=== PATIENT | male | born 1975 | race Caucasian/White ===

== ENCOUNTER 2017-09-08 20:30 | Outpatient (CLI) | payer BC ==
[~2017-09-08 20:30] MED LIST: AZIT-21 PO; CEPH500C PO; INSU100I16 SQ; INSU100I23 SQ; OXYC-12 PO
== END 2017-09-09 07:05 | disposition home or self-care (01) ==
LOC: SLEEP 20:30
PROVIDERS: ATTEND Family Medicine
DX: G47.33 Obstructive sleep apnea (adult) (pediatric) (principal)
CPT/HCPCS: 95811

== ENCOUNTER → 2019-08-14 | Outpatient (CLI) | payer BC ==
--- NOTE | 2019-08-14 13:06 | Diagnostic Imaging Report ---
INDICATION: Left breast nodule. COMPARISON: No prior mammograms are available for comparison. TECHNIQUE: Unilateral left 2D and 3D diagnostic mammography was performed with CAD. FINDINGS: No significant fibroglandular tissue is seen. A BB marker was placed at the area of palpable abnormality in the upper outer left breast. No underlying abnormality is seen. No suspicious calcifications are identified. The left axilla is unremarkable. IMPRESSION: No suspicious mammographic abnormalities are identified. Even so, directed sonographic interrogation of the area of palpable abnormality in the left breast is recommended and will be performed today. ACR BI-RADS Category 0: Incomplete. (Needs additional imaging evaluation). Result letter will be mailed to the patient. Note: At least 10% of breast cancer is not imaged by mammography. Dictated by: Dictated on workstation # [id number]
--- NOTE | 2019-08-14 14:36 | Diagnostic Imaging Report ---
INDICATION: Palpable lumps in the left breast. COMPARISON: Correlation is made with the diagnostic mammogram from earlier this same day. FINDINGS: Sonographic interrogation of the areas of nodules in the upper, outer, and lower-outer left breast was performed. No sonographic abnormality is seen. No solid or cystic mass is detected. IMPRESSION: No sonographic abnormality is detected. Continued clinical and self breast exams are recommended to confirm stability of the palpable abnormalities. ACR BI-RADS Category 1: Negative. Dictated by: Dictated on workstation # [id number]
== END ==
LOC: RAD 12:31
PROVIDERS: ATTEND Nurse Practitioner Family
DX: N63.42 Unspecified lump in left breast, subareolar (principal); G47.33 Obstructive sleep apnea (adult) (pediatric); E11.8 Type 2 diabetes mellitus with unspecified complications
CPT/HCPCS: 76642

== ENCOUNTER → 2019-08-29 | Outpatient (CLI) | payer BC ==
--- NOTE | 2019-08-29 17:02 | Diagnostic Imaging Report ---
INDICATION: Hip pain. COMPARISON: None available. TECHNIQUE: Five radiographs of the pelvis and bilateral hips dated August 29, 2019. FINDINGS: Degenerative changes noted at the lumbosacral junction. The sacroiliac joints are intact. No acute fracture or dislocation. 2.4 cm sclerotic lesion is noted within the medial aspect of the left acetabulum. An additional 1.1 cm sclerotic focus is noted within the left acetabular roof. Mild osteophyte formation associated with the bilateral hips, right greater than left. Minimal bilateral joint space narrowing involving the hips. The pubic symphysis is intact. IMPRESSION: Two sclerotic lesions about the left acetabulum. These are of uncertain etiology. Although these could relate to bone islands, osseous metastatic disease or other sclerotic lesions not excluded. Comparison to prior imaging is recommended. If there is clinical concern that this could relate to osseous metastatic disease, then a nuclear medicine whole body bone scan would be recommended. Mild scattered degenerative changes, greatest within the right hip and the lumbosacral junction. Dictated by: Dictated on workstation # [id number]
== END ==
LOC: RAD 11:43
PROVIDERS: ATTEND Internal Medicine
DX: M16.0 Bilateral primary osteoarthritis of hip (principal); M47.817 Spondylosis without myelopathy or radiculopathy, lumbosacral region; M89.9 Disorder of bone, unspecified
CPT/HCPCS: 73523

== ENCOUNTER → 2019-09-30 | Outpatient (CLI) | payer BC ==
--- NOTE | 2019-09-30 15:55 | Diagnostic Imaging Report ---
EXAMINATION: Nuclear medicine whole body bone scan. INDICATION: Bilateral anterior hip pain. TECHNIQUE: This study was performed following administration of 25.5 mCi of 99m technetium MDP. Anterior and posterior whole body images were obtained as well as anterior, posterior, and both lateral spot films of the pelvis. FINDINGS: There are no prior nuclear medicine studies available for comparison. The plain film examination of the pelvis performed on 08/29/2019 failed to show any sign of an acute bony abnormality. There were two sclerotic lesions in the left acetabulum. There was also moderate degenerative disease of both hip joints. On this exam, there is no increased uptake in the region of the left acetabulum in the area of the sclerotic foci to suggest that those areas of sclerosis are neoplastic in nature. There is slightly increased activity along the lateral aspect of the left hip. I suspect this is more likely due to degenerative disease than to an acute abnormality. There is no other abnormal uptake to suggest an acute abnormality or neoplastic disease. Both kidneys do show excretion of the contrast. IMPRESSION: 1. There is no evidence for an acute bony abnormality. There is no abnormal enhancement about the left acetabulum to suggest the presence of neoplastic disease either. 2. The slightly increased activity about the left acetabulum is most likely degenerative in nature. 3. If clinical concern regarding an underlying abnormality of the hips persists and further imaging is desired, then MRI would be recommended. Dictated by: Dictated on workstation # [id number]
== END ==
LOC: CARD 10:50
PROVIDERS: ATTEND Internal Medicine
DX: M25.551 Pain in right hip (principal); M25.552 Pain in left hip
CPT/HCPCS: 78306

== ENCOUNTER → 2020-01-27 | Outpatient (CLI) | payer BC ==
--- NOTE | 2020-01-27 16:03 | Diagnostic Imaging Report ---
Indication: Difficulty swallowing and breathing. Time of exam: 3:55 PM Comparison is made with prior chest from 03/28/2011. The heart size is normal. The pulmonary vascularity is unremarkable. The lungs are clear. No infiltrate, effusion or pneumothorax is detected. Impression: No acute cardiopulmonary process is detected. Dictated by: Dictated on workstation # [id number]
== END ==
LOC: RAD 15:38
PROVIDERS: ATTEND Internal Medicine
DX: R13.19 Other dysphagia (principal); R06.02 Shortness of breath
CPT/HCPCS: 71046

== ENCOUNTER 2020-01-28 00:54 | Emergency (ER) | payer BC ==
[~2020-01-28] VITALS: Ht 193 cm; Wt 129.0 kg
[2020-01-28] MEDS ORDERED: LIDOCAINE 2% VISCOUS 15 ML UDC PO ONE (02:00)
[2020-01-28] MEDS ORDERED: ANTACID SUSP 30 ML UDC (MYLANTA) PO ONE (02:00)
[2020-01-28 02:05] LABS: BASOPHILS % (AUTO) 0 % (0-10); EOSINOPHILS # (AUTO) 0.2 10^3/uL (0.0-0.3); EOSINOPHILS % (AUTO) 2 % (0-10); HEMATOCRIT 48 % (40-54); HEMOGLOBIN 16.1 G/DL (13.3-17.7); LYMPHOCYTES # (AUTO) 3.1 X 10^3 (1.0-4.0); LYMPHOCYTES % (AUTO) 35 % (12-44); MEAN CORPUSCULAR HEMOGLOBIN 26 PG (25-34); MEAN CORPUSCULAR HGB CONC 34 G/DL (32-36); MEAN CORPUSCULAR VOLUME 78 FL (80-99); MEAN PLATELET VOLUME 10.6 FL (7.4-10.4); MONOCYTES # (AUTO) 0.8 X 10^3 (0.0-1.0); MONOCYTES % (AUTO) 9 % (0-12); NEUTROPHILS # (AUTO) 4.8 X 10^3 (1.8-7.8); NEUTROPHILS % (AUTO) 54 % (42-75); PLATELET COUNT 256 10^3/uL (130-400); RED CELL DISTRIBUTION WIDTH 14.7 % (10.0-14.5); WHITE BLOOD COUNT 8.8 10^3/uL (4.3-11.0)
[2020-01-28 02:12] LABS: ALBUMIN 4.9 GM/DL (3.2-4.5); CHLORIDE 103 MMOL/L (98-107); POTASSIUM 3.6 MMOL/L (3.6-5.0); SODIUM 140 MMOL/L (135-145)
[2020-01-28 02:13] LABS: CALCIUM 10.2 MG/DL (8.5-10.1)
[2020-01-28 02:14] LABS: GLUCOSE 89 MG/DL (70-105); TOTAL PROTEIN 8.4 GM/DL (6.4-8.2)
[2020-01-28 02:15] LABS: CARBON DIOXIDE 22 MMOL/L (21-32)
[2020-01-28 02:16] LABS: BILIRUBIN,TOTAL 0.5 MG/DL (0.1-1.0)
[2020-01-28 02:18] LABS: ALKALINE PHOSPHATASE 64 U/L (40-136); CREATININE SERUM 0.89 MG/DL (0.60-1.30); GFR ESTIMATED > 60
[2020-01-28 02:19] LABS: BUN/CREATININE RATIO 18
[2020-01-28 02:21] LABS: ALANINE AMINOTRANSFERASE 36 U/L (0-55)
--- NOTE | 2020-01-28 02:24 | ED General ---
General Chief Complaint: Respiratory Problems Stated Complaint: SOB Source of Information: Patient Exam Limitations: No Limitations (INESSA MORRIS,) History of Present Illness Date Seen by Provider: Jan 28, 2020 Time Seen by Provider: 02:08 Initial Comments Mr. Martinez is here regarding difficulty swallowing. This has been occurring for 10 days, but tonight, the symptoms were unbearable. His difficulty swallowing leads to shortness of breath. Laying on his back worsens the pain to where he cannot swallow his own saliva. He uses a CPAP at night to help with breathing, but he states that he cannot feel the air pressure anymore due to symptoms. Last week, he was diagnosed with acid reflux by his PCP and was taking OTC Prilosec with Pepcid added a few days later. He does note that the pain lessens for a few hours per day with these medications. However, tonight the symptoms were worsening again and he had many "failed swallowing attempts". He does notice that when he flexes his jaw or moves his head around, he can dislodge food and swallow easier. He has to chew his food excessively in order to contemplate swallowing. Standing improves his pain while lying down worsens it. He does not notice that the symptoms worsen with specific food types, but does notice he experiences symptoms about 2 hours after consumption of food. He describes this feeling as "something there that needs to be swallowed but can't, like a clog". He has tried Tums, Mylanta, and Tatianna Tifton for symptoms without relief. He denies nausea, vomiting, chest pain, headache, or upper respiratory symptoms. No known exposure to COVID-19. He does state that he has been short of breath during this time and each time he breathes, regardless of other symptoms, he does not think he can get a full breath. Also, he notes that he can't breathe air through his nose, but is unsure if he is congested. Timing/Duration: 1 Week Severity: Moderate Modifying Factors: worse with Eating (INESSA MORRIS,) Initial Comments Additionally, patient reports having snoring recently. He does have obstructive sleep apnea and does use CPAP. He did have that checked and states that it is working appropriately. States that he feels like something is blocking swallowing. He has not had this sensation before. Denies fever or chills. Further investigation into travel history and exposure revealed no concerning events. He did meet a commercial real estate underwriter a little over 2 weeks ago but that has been his last exposure to anyone outside the home. He works from home. He has gone to the store over the last 2 weeks but wears a mask and washes his hands. Otherwise no significant contact. Timing/Duration: 1 Week (2 weeks) Severity: Moderate Modifying Factors: improves with Rest Associated Systoms: No Chest Pain, No Cough, No Fever/Chills, No Malaise, No Nausea/Vomiting; Shortness of Air (feeling of shortness of air due to difficulty with swallowing); No Weakness (JEN RODRÍGUEZ MD) Allergies and Home Medications Allergies Coded Allergies: No Known Drug Allergies (Unverified , 01/29/11) Home Medications Cephalexin Monohydrate 500 Mg Capsule, 1 EACH PO TID, (Reported) TAKE ONE BY MOUTH THREE TIMES A DAY. USE ALL OF THIS MED (ANTIBIOITIC) PRESCRIBED. Insulin Detemir 100 Unit/1 Ml Insuln.pen, 24 UNIT SQ HS, (Reported) Insulin Human Lispro 300 U/3 Ml Insuln.pen, 15 UNITS SQ TIDAC, (Reported) Oxycodone Hcl/Acetaminophen 1 Each Tablet, 1-2 EACH PO Q4-6HRS PRN, (Reported) MAY TAKE 1 OR 2 TABS BY MOUTH EVERY 4-6 HRS NEEDED FOR PAIN. DO NOT EXCEED 3000 MG TYLENOL (ACETAMINOPHEN)IN 24HRS Patient Home Medication List Home Medication List Reviewed: Yes (INESSA MORRIS,) Home Medication List Reviewed: Yes (JEN RODRÍGUEZ MD) Review of Systems Review of Systems Constitutional: no symptoms reported EENTM: see HPI Respiratory: see HPI Cardiovascular: no symptoms reported Gastrointestinal: see HPI Genitourinary: no symptoms reported Musculoskeletal: no symptoms reported Skin: no symptoms reported Psychiatric/Neurological: No Symptoms Reported Hematologic/Lymphatic: No Symptoms Reported Immunological/Allergic: no symptoms reported (INESSA MORRIS,) Constitutional: No chills, No fever, No weakness EENTM: see HPI, nose congestion; No throat pain Respiratory: see HPI; No cough, No wheezing Cardiovascular: No chest pain, No edema Gastrointestinal: see HPI; No abdominal pain, No nausea, No vomiting Genitourinary: no symptoms reported Musculoskeletal: no symptoms reported (JEN RODRÍGUEZ MD) All Other Systems Reviewed Negative Unless Noted: Yes (JEN RODRÍGUEZ MD) Past Wypszhl-Kahtoj-Rvepff Hx Past Med/Social Hx: Reviewed Nursing Past Med/Soc Hx (JEN RODRÍGUEZ MD) Patient Social History Recent Foreign Travel: No Contact w/Someone Who Travel: No Physical Abuse: No Sexual Abuse: No Mistreated: No Fear: No (INESSA MORRIS) Alcohol Use: Denies Use Recreational Drug Use: No Smoking Status: Never a Smoker (JEN RODRÍGUEZ MD) Past Medical History Reproductive Disorders: No (INESSA MORRIS,) Family Medical History Reviewed Nursing Family Hx (JEN RODRÍGUEZ MD) No Pertinent Family Hx (JEN RODRÍGUEZ MD) Physical Exam Vital Signs Vital Signs - First Documented 01/28/20 01:20 Temp 36.7 Pulse 91 Resp 20 B/P (MAP) 165/107 (126) O2 Delivery Room Air (JEN RODRÍGUEZ MD) Vital Signs Capillary Refill : (INESSA MORRIS,) Height, Weight, BMI Height: '" Weight: lbs. oz. kg; BMI Method: (INESSA MORRIS,) General Appearance: No Apparent Distress, WD/WN HEENT: PERRL/EOMI, TMs Normal, Pharyngeal Erythema, Other (uvula is quite enlarged and is lying on the tongue with full mouth opening) Neck: Non Tender, Supple Respiratory: Lungs Clear, Normal Breath Sounds Cardiovascular: Regular Rate, Rhythm, No Murmur Gastrointestinal: Non Tender, Soft Neurologic/Psychiatric: Alert, Oriented x3 Skin: Normal Color, Warm/Dry (JEN RODRÍGUEZ MD) Progress/Results/Core Measures Suspected Sepsis SIRS Temperature: Pulse: Respiratory Rate: Laboratory Tests 01/28/20 01:55: White Blood Count 8.8 Blood Pressure / Mean: Laboratory Tests 01/28/20 01:55: Platelet Count 256, Total Bilirubin 0.5 (INESSA MORRIS,) Results/Orders Lab Results Laboratory Tests Test 01/28/20 01:55 Range/Units White Blood Count 8.8 4.3-11.0 10^3/uL Red Blood Count 6.12 H 4.35-5.85 10^6/uL Hemoglobin 16.1 13.3-17.7 G/DL Hematocrit 48 40-54 % Mean Corpuscular Volume 78 L 80-99 FL Mean Corpuscular Hemoglobin 26 25-34 PG Mean Corpuscular Hemoglobin Concent 34 32-36 G/DL Red Cell Distribution Width 14.7 H 10.0-14.5 % Platelet Count 256 130-400 10^3/uL Mean Platelet Volume 10.6 H 7.4-10.4 FL Neutrophils (%) (Auto) 54 42-75 % Lymphocytes (%) (Auto) 35 12-44 % Monocytes (%) (Auto) 9 0-12 % Eosinophils (%) (Auto) 2 0-10 % Basophils (%) (Auto) 0 0-10 % Neutrophils # (Auto) 4.8 1.8-7.8 X 10^3 Lymphocytes # (Auto) 3.1 1.0-4.0 X 10^3 Monocytes # (Auto) 0.8 0.0-1.0 X 10^3 Eosinophils # (Auto) 0.2 0.0-0.3 10^3/uL Basophils # (Auto) 0.0 0.0-0.1 10^3/uL Erythrocyte Sedimentation Rate 1 0-15 MM/HR D-Dimer < 0.27 0.00-0.49 UG/ML Sodium Level 140 135-145 MMOL/L Potassium Level 3.6 3.6-5.0 MMOL/L Chloride Level 103 98-107 MMOL/L Carbon Dioxide Level 22 21-32 MMOL/L Anion Gap 15 H 5-14 MMOL/L Blood Urea Nitrogen 16 7-18 MG/DL Creatinine 0.89 0.60-1.30 MG/DL Estimat Glomerular Filtration Rate > 60 BUN/Creatinine Ratio 18 Glucose Level 89 70-105 MG/DL Calcium Level 10.2 H 8.5-10.1 MG/DL Corrected Calcium 8.5-10.1 MG/DL Total Bilirubin 0.5 0.1-1.0 MG/DL Aspartate Amino Transf (AST/SGOT) 27 5-34 U/L Alanine Aminotransferase (ALT/SGPT) 36 0-55 U/L Alkaline Phosphatase 64 40-136 U/L C-Reactive Protein High Sensitivity 0.32 0.00-0.50 MG/DL Total Protein 8.4 H 6.4-8.2 GM/DL Albumin 4.9 H 3.2-4.5 GM/DL (JEN RODRÍGUEZ MD) My Orders Orders - JEN RODRÍGUEZ MD Cbc With Automated Diff (01/28/20 01:45) Comprehensive Metabolic Panel (01/28/20 01:45) Fibrin Degradation Products (01/28/20 01:45) Hs C Reactive Protein (01/28/20 01:45) Erythrocyte Sedimentation Rate (01/28/20 01:45) Chest 1 View, Ap/Pa Only (01/28/20 01:45) Ed Iv/Invasive Line Start (01/28/20 02:00) Lidocaine 2% Viscous 15 Ml (Xylocaine Vi (01/28/20 02:00) Antacid Suspension (Mylanta Suspension (01/28/20 02:00) Dexamethasone Injection (Decadron Inject (01/28/20 03:00) Oxymetazoline 0.05% Nasal [place] (Afrin 0. (01/28/20 03:00) (JEN RODRÍGUEZ MD) Medications Given in ED Current Medications Medications Dose Ordered Sig/Ricki Route Start Time Stop Time Status Last Admin Dose Admin Al Hydrox/Mg Hydrox/Simethicone 30 ml ONCE ONCE PO 01/28/20 02:00 01/28/20 02:03 DC 01/28/20 02:22 30 ML Lidocaine HCl 15 ml ONCE ONCE PO 01/28/20 02:00 01/28/20 02:03 DC 01/28/20 02:22 15 ML (JEN RODRÍGUEZ MD) Vital Signs/I&O 01/28/20 01:20 Temp 36.7 Pulse 91 Resp 20 B/P (MAP) 165/107 (126) O2 Delivery Room Air (JEN RODRÍGUEZ MD) Vital Signs/I&O Capillary Refill : (INESSA MORRIS,) Progress Note : Progress Note Seen and evaluated. IV, labs and chest x-ray ordered. GI cocktail ordered. Chest x-ray compared to previous done yesterday and shows no acute changes or findings. Labs unremarkable. Does have quite point uvula which may be his cause for sensation of difficulty swallowing. Afrin nasal spray to bilateral nostrils and 2 sprays directly to uvula done. I did discuss with the patient that this may be the cause of the sensation although he should still follow-up with Dr. Land as was instructed by his primary care physician. I will send a copy of the note to Dr. Maradiaga. Discharged home with return precautions. Patient verbalize understanding instructions and agreement with plan. (JEN RODRÍGUEZ MD) Diagnostic Imaging Diagonstic Imaging: Xray Plain Films/CT/US/NM/MRI: chest Comments No acute findings and unchanged when compared to previous done yesterday. Reviewed: Reviewed by Me (JEN RODRÍGUEZ MD) Departure Impression Primary Impression: Uvulitis Additional Impression: Difficulty swallowing Qualified Codes: R13.12 - Dysphagia, oropharyngeal phase Disposition: HOME, SELF-CARE Condition: Stable Departure-Patient Inst. Decision time for Depature: 03:17 (JEN RODRÍGUEZ MD) Referrals: IVAN LAND WILLIAM J DO (PCP/Family) Primary Care Physician Patient Instructions: Dysphagia (DC), Sore Throat, Adult (DC) Add. Discharge Instructions: All discharge instructions reviewed with patient and/or family. Voiced understanding. Continue Afrin nasal spray 2 sprays to each nostril twice daily for 3 days only and then stop. Do not use more than 3 days. Follow-up with your DrJael in a few days for recheck. Call Dr. Land's office this morning for appointment. Return for worse pain, fever, vomiting, weakness, breathing problems or other concerns as needed. Copy Copies To 1: UTE MARADIAGA LAUREN, Jan 28, 2020 02:24 JEN RODRÍGUEZ MD Jan 28, 2020 03:16
[2020-01-28 02:28] LABS: ERYTHROCYTE SEDIMENTATION RATE 1 MM/HR (0-15)
[2020-01-28] MEDS ORDERED: DEXAMETHASONE 10 MG/ML (DECADRON) 1 ML VIAL IV ONE (03:00)
[2020-01-28] MEDS ORDERED: OXYMETAZOLINE (AFRIN) 0.05% NA 30 ML BTL SCH (03:00)
[2020-01-28 03:25] VITALS: BP 151/94
--- NOTE | 2020-01-28 05:34 | Diagnostic Imaging Report ---
Indication: Shortness of breath Portable chest 2:22 AM Heart size and pulmonary vascularity are normal. Lungs are clear. There are no effusions or pneumothoraces. IMPRESSION: Negative chest Dictated by: Dictated on workstation # [id number]
== END 2020-01-28 03:25 | disposition home or self-care (01) ==
LOC: EDUNIT# 00:54 → ER 00:57
DX: K12.2 Cellulitis and abscess of mouth (principal); R13.12 Dysphagia, oropharyngeal phase; Z79.4 Long term (current) use of insulin
CPT/HCPCS: 36415; 71045; 80053; 85025; 85379; 85652; 86141; 96374

== ENCOUNTER → 2020-01-29 | Outpatient (CLI) | payer BC ==
--- NOTE | 2020-01-29 10:58 | Diagnostic Imaging Report ---
INDICATION: Dysphagia. TECHNIQUE: This study was performed in conjunction with Speech Pathology. Video fluoroscopy was performed during the swallowing of barium in multiple consistencies. 51 seconds of fluoroscopic time was utilized. FINDINGS: The patient ingested thin barium with a spoon and through a straw. The patient was also administered puree, mechanical soft, and regular consistencies. The oral phase is unremarkable. There is normal epiglottic tilt and laryngeal elevation. No laryngeal penetration or aspiration was observed. IMPRESSION: Unremarkable modified barium swallow study. Dictated by: Dictated on workstation # [id number]
== END ==
LOC: RAD 09:56
PROVIDERS: ATTEND Surgery
DX: R13.10 Dysphagia, unspecified (principal)
CPT/HCPCS: 74230

== ENCOUNTER 2020-05-04 09:17 | Outpatient (CLI) | payer BC ==
[~2020-05-04] VITALS: Ht 193 cm; Wt 133.2 kg
[~2020-05-04 09:17] MED LIST changes: -ACHD5005 PO; -AMOX-355 PO; -FLUT9.9S NS
[2020-05-04 10:10] LABS: BASOPHILS % (AUTO) 0 % (0-10); EOSINOPHILS # (AUTO) 0.1 10^3/uL (0.0-0.3); EOSINOPHILS % (AUTO) 2 % (0-10); HEMATOCRIT 48 % (40-54); LYMPHOCYTES # (AUTO) 1.3 10^3/uL (1.0-4.0); LYMPHOCYTES % (AUTO) 23 % (12-44); MEAN CORPUSCULAR HEMOGLOBIN 25 pg (25-34); MEAN CORPUSCULAR HGB CONC 31 g/dL (32-36); MEAN CORPUSCULAR VOLUME 80 fL (80-99); MEAN PLATELET VOLUME 10.3 fL (9.0-12.2); MONOCYTES # (AUTO) 0.5 10^3/uL (0.0-1.0); MONOCYTES % (AUTO) 8 % (0-12); NEUTROPHILS # (AUTO) 3.9 10^3/uL (1.8-7.8); NEUTROPHILS % (AUTO) 66 % (42-75); PLATELET COUNT 233 10^3/uL (130-400); WHITE BLOOD COUNT 5.9 10^3/uL (4.3-11.0)
[2020-05-04 10:13] VITALS: BP 147/84
[2020-05-04 10:27] LABS: CHLORIDE 106 MMOL/L (98-107); SODIUM 138 MMOL/L (135-145)
[2020-05-04 10:28] LABS: CALCIUM 8.6 MG/DL (8.5-10.1); GLUCOSE 102 MG/DL (70-105)
[2020-05-04] MEDS ORDERED: FLUT9.9S NS (10:29)
[2020-05-04 10:30] LABS: CARBON DIOXIDE 22 MMOL/L (21-32)
[2020-05-04 10:32] LABS: CREATININE SERUM 0.75 MG/DL (0.60-1.30); GFR ESTIMATED > 60
[2020-05-04 10:33] LABS: BUN/CREATININE RATIO 19
== END 2020-05-04 11:04 | disposition home or self-care (01) ==
LOC: PREOP 09:17
PROVIDERS: ATTEND Otolaryngology Otolaryngology/Facial Plastic Surgery
DX: Z01.818 Encounter for other preprocedural examination (principal); J34.2 Deviated nasal septum; R09.81 Nasal congestion
CPT/HCPCS: 36415; 80048; 85025; 87081; 93005

== ENCOUNTER → 2020-05-04 | Outpatient (CLI) | payer BC ==
[~2020-05-04] MED LIST changes: +ACHD5005 PO; +AMOX-355 PO; +FLUT9.9S NS
== END ==
LOC: LABNPT 09:03
PROVIDERS: ATTEND Otolaryngology Otolaryngology/Facial Plastic Surgery
DX: Z01.812 Encounter for preprocedural laboratory examination (principal); J34.2 Deviated nasal septum; Z20.828 Contact with and (suspected) exposure to other viral communicable diseases
CPT/HCPCS: 87635

== ENCOUNTER 2020-05-07 06:23 | Day surgery (SDC) | payer BC ==
[~2020-05-07] VITALS: Ht 193 cm; Wt 133.2 kg
[2020-05-07] VITALS (10 sets, daily range): BP systolic 136–165; BP diastolic 75–98
[~2020-05-07 06:23] MED LIST changes: +FLUT9.9S NS
[2020-05-07] MEDS ORDERED: PHENYLEPHRINE 0.5% NASAL SPR (NEO-SYNEPHRINE) REG ONE (06:37)
[2020-05-07] MEDS ORDERED: COCAINE HCL 4% 2 ML SYR ONE (06:37)
[2020-05-07] MEDS ORDERED: LIDOCAINE/EPI 1%-1:100,000 (XYLOCAINE) 20ML ONE (06:37)
--- NOTE | 2020-05-07 06:51 | Progress Note-Pre Operative ---
Pre-Operative Progress Note H&P Reviewed The H&P was reviewed, patient examined and no changes noted. 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
[2020-05-07] MEDS ORDERED: MIDAZOLAM 2 MG/2 ML (VERSED) VIAL ONE (06:53)
[2020-05-07] MEDS ORDERED: fentaNYL INJECTION 100 MCG/2 ML AMP ONE (06:53)
[2020-05-07] MEDS ORDERED: SEVOFLURANE (ULTANE) 15 ML INHAL SOLN ONE ×3 (06:57→07:59)
[2020-05-07] MEDS ORDERED: ROCURONIUM 10 MG/ML 5 ML SYRINGE IV ONE (06:57)
[2020-05-07] MEDS ORDERED: proPOfol 200 MG/20 ML (DIPRIVAN) VIAL IV ONE ×2 (06:57→08:00)
[2020-05-07] MEDS ORDERED: ONDANSETRON 4 MG/2 ML (SDV) Z0FRAN ONE (06:57)
[2020-05-07] MEDS ORDERED: LIDOCAINE PF 2% 5 ML (XYLOCAINE) VIAL ONE (06:57)
[2020-05-07] MEDS: LACTATED RINGERS 1,000 ML IV PRN ×2 (07:10→08:14)
[2020-05-07] MEDS ORDERED: morphine INJ 10 MG/ML 1ML (SYR OR VIAL) IVP ONE (07:30)
[2020-05-07] MEDS ORDERED: ONDANSETRON 4 MG/2 ML (SDV) Z0FRAN IVP PRN (07:30)
[2020-05-07] MEDS ORDERED: fentaNYL INJECTION 100 MCG/2 ML AMP IVP ONE (07:30)
[2020-05-07] MEDS ORDERED: MEPERIDINE (DEMEROL) INJ 50 MG/ML IVP ONE (07:30)
[2020-05-07] MEDS ORDERED: D5 1/2 NS W/KCL 20 MEQ/L 1,000 ML IV SCH (07:46)
--- NOTE | 2020-05-07 07:46 | Progress Note-Post Operative ---
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 Specimen(s) collected/removed none DARIAN BLANDON MD May 07, 2020 07:46
[2020-05-07] MEDS ORDERED: NEOSTIGMINE 3 MG/3 ML VIAL ONE (07:59)
[2020-05-07] MEDS ORDERED: GLYCOPYRROLATE 0.2 MG/ML (ROBINUL) 2 ML VIAL ONE (07:59)
[2020-05-07] MEDS ORDERED: SUGAMMADEX 500 MG/5 ML VIAL (BRIDION) IV ONE (07:59)
[2020-05-07] MEDS ORDERED: PROMETHAZINE INJ 25 MG/ML (PHENERGAN) AMP IVP PRN (08:00)
[2020-05-07] MEDS ORDERED: ACETAMINOPHEN 325 MG TABLET PO PRN (08:00)
[2020-05-07] MEDS ORDERED: ACHD5005 PO (08:53)
[2020-05-07] MEDS ORDERED: AMOX-355 PO (08:53)
--- NOTE | 2020-05-07 09:12 | Anesthesia-General Post-Op ---
General Patient Condition Mental Status/LOC: Same as Preop Cardiovascular: Satisfactory Nausea/Vomiting: Absent Respiratory: Satisfactory Pain: Controlled Complications: Absent Post Op Complications Complications None Follow Up Care/Instructions Patient Instructions None needed. Anesthesia/Patient Condition Patient Condition Patient is doing well, no complaints, stable vital signs, no apparent adverse anesthesia problems. No complications reported per nursing. MEMO PACK CRNA May 07, 2020 09:12
== END 2020-05-07 09:55 | disposition home or self-care (01) ==
LOC: SDC 06:23
PROVIDERS: ATTEND Otolaryngology Otolaryngology/Facial Plastic Surgery
DX: J34.3 Hypertrophy of nasal turbinates (principal); R09.81 Nasal congestion; G47.33 Obstructive sleep apnea (adult) (pediatric); G89.29 Other chronic pain; M54.2 Cervicalgia

== ENCOUNTER → 2021-04-22 | Outpatient (CLI) | payer BC ==
[~2021-04-22] MED LIST changes: +ACHD5005 PO; +AMOX-355 PO
== END ==
LOC: CARD 12:32
PROVIDERS: ATTEND Internal Medicine Cardiovascular Disease
DX: R94.31 Abnormal electrocardiogram [ECG] [EKG] (principal)
CPT/HCPCS: 93306

== ENCOUNTER → 2021-05-13 | Outpatient (CLI) | payer BC ==
[~2021-05-13] VITALS: Ht 193 cm; Wt 119.0 kg
[~2021-05-13] MED LIST changes: +CATHETER FLUSH 10 ML SYR IV PRN
[2021-05-13 08:53] VITALS: BP 148/64
--- NOTE | 2021-05-13 16:05 | NUCLEAR STRESS TEST ---
TREADMILL NUCLEAR STRESS TEST Date of procedure: 05/13/2021. Primary care provider: Rogelio Maradiaga DO. Admitting physician: Alfredo Harley Jr., MD. INDICATION: Abnormal electrocardiogram. BASELINE ELECTROCARDIOGRAM: Sinus rhythm with sinus arrhythmia and nonspecific inferior T wave changes. STRESS TEST PROCEDURE: The patient was exercised for a total of 7 minutes and 56 seconds of the standard Sylvester protocol achieving a maximum MET level of 9.5. The resting heart rate was 61 bpm and the peak heart rate was 158 bpm, which represents 89% of the maximum predicted heart rate. The resting blood pressure was 124/69 mmHg and the peak blood pressure was 188/68 mmHg. This represents a normal heart rate and a normal blood pressure response to exercise. The test was stopped due to fatigue. There was no chest discomfort during the test. There were isolated premature ventricular complexes in recovery. There were positive stress induced electrocardiogram changes with approximately 1.[address] depression in the inferolateral leads that improved in recovery. The patient exhibited good exercise capacity for age. NUCLEAR PROCEDURE: The patient was administered 10.8 mCi of intravenous technetium 99m Tetrofosmin at rest for the rest images. The patient was subsequently administered 30.1 mCi of intravenous technetium 99 M Tetrofosmin at peak stress for the stress images. Following an appropriate wait after each injection, imaging was obtained. The images were subsequently processed and reformatted in the usual views. Gated imaging was obtained. The image quality was adequate but with some gastrointestinal attenuation artifact. CT attenuation correction was used as a adjunct to standard imaging. Both the corrected and uncorrected images were reviewed for interpretation. NUCLEAR RESULTS: There was normal myocardial perfusion in all segments without e vidence of infarction or ischemia. There was normal left ventricular chamber size with an end-diastolic volume of 105 mL and an end-systolic volume of 37 mL. There was no evidence of transient ischemic dilatation. The TID ratio was 1.1. There was normal wall motion in all segments with a calculated ejection fraction of 65%. IMPRESSION: 1. Normal heart rate and blood pressure response to exercise. 2. There was no chest discomfort during the test. 3. There were isolated premature ventricular complexes in recovery. 4. There were positive exercise-induced electrocardiogram changes that resolved in recovery. 5. The patient exhibited good exercise capacity at 7 minutes and 56 seconds of the Sylvester protocol. 6. There was normal myocardial perfusion in all segments without evidence of infarction or ischemia. 7. There was normal wall motion in all segments with a calculated ejection fract ion of 65%. 8. Although the nuclear portion of this study was normal, there were abnormal electrocardiogram changes. Clinical correlation is recommended. Certain portions of this document may have been dictated utilizing voice recognition technology. Inherent to this technology, typographical and grammatical errors may exist. As much as I am diligent to identify and correct these mistakes, some errors may remain in the document. ALFREDO HARLEY JR, MD May 13, 2021 16:05
== END ==
LOC: CARD 07:45
PROVIDERS: ATTEND Internal Medicine Cardiovascular Disease
DX: R94.31 Abnormal electrocardiogram [ECG] [EKG] (principal)
CPT/HCPCS: 78452; 93017; A9502